=== PATIENT | male | born 1995 | race Hispanic/Latino ===

== ENCOUNTER → 2017-08-21 | Outpatient (CLI) | payer OTHER ==
--- NOTE | 2017-08-21 09:41 | Diagnostic Imaging Report ---
PROCEDURE: X-RAY CHEST, TWO VIEWS COMPARISON: None. INDICATIONS: LEFT LATERAL RIB PAIN FINDINGS: Lungs are well-inflated. No consolidation, pleural effusion, or pneumothorax. Cardiomediastinal contour and pulmonary vasculature are within normal limits. No acute osseous abnormality. CONCLUSION: No acute cardiopulmonary abnormality. Dictated by: Edmond Schwab M.D. on 08/21/2017 at 9:40 Electronically approved by: Edmond Schwab M.D. on 08/21/2017 at 9:40
--- NOTE | 2017-08-21 09:43 | Diagnostic Imaging Report ---
PROCEDURE:X-RAY UNILATERAL RIBS WITH CHEST X-RAY COMPARISON:Chest radiograph same date. INDICATIONS:LEFT LATERAL RIB PAIN FINDINGS: See conclusion CONCLUSION: no displaced left rib fracture or pneumothorax. Dictated by: Edmond Schwab M.D. on 08/21/2017 at 9:42 Electronically approved by: Edmond Schwab M.D. on 08/21/2017 at 9:42
== END ==
LOC: RAD 09:05
PROVIDERS: ATTEND Internal Medicine
DX: R07.9 Chest pain, unspecified (principal)
CPT/HCPCS: 71046; 71101